=== PATIENT | female | born 1995 | race American Indian/Alaskan Native ===

== ENCOUNTER 2021-01-29 17:18 | Outpatient (CLI) | payer MEDICAID ==
[2021-01-29 19:13] LABS: Hemoglobin 9.9 gm/dl (10.1-14.3); Mean Corpuscular HGB Conc 33 % (30-34); Mean Corpuscular Volume 78 fl (79-97); Platelet Count 244 K/mm3 (140-440); Red Blood Count 3.83 M/mm3 (3.65-5.03); Red Cell Distribution Width 16.4 % (13.2-15.2)
[2021-01-29 19:33] LABS: Alanine Aminotransferase 13 units/L (7-56); Uric Acid 4.7 mg/dL (3.5-7.6)
[2021-01-29 21:40] VITALS: BP 155/93
[2021-01-29 22:06] LABS: Bilirubin,Urine NEG (Negative); Blood,Urine SM (Negative); Color,Urine Yellow (Yellow); Mucus,Urine FEW /HPF; Urobilinogen,Urine < 2.0 mg/dL (<2.0)
== END 2021-01-29 22:49 | disposition home or self-care (01) ==
LOC: TRG 17:18 → APU 17:21 → TRG 22:49
PROVIDERS: ATTEND Obstetrics & Gynecology
DX: O13.3 Gestational [pregnancy-induced] hypertension without significant proteinuria, third trimester (principal); Z3A.38 38 weeks gestation of pregnancy
CPT/HCPCS: 36415; 59025; 81001; 82565; 83615; 84450; 84460; 84550; 85027

== ENCOUNTER 2021-02-01 19:32 | Inpatient (IN) | payer MEDICAID ==
[2021-02-01 20:46] LABS: Hemoglobin 10.2 gm/dl (10.1-14.3); Mean Corpuscular HGB Conc 33 % (30-34); Mean Corpuscular Volume 77 fl (79-97); Platelet Count 248 K/mm3 (140-440); Red Blood Count 4.01 M/mm3 (3.65-5.03); Red Cell Distribution Width 16.2 % (13.2-15.2)
[2021-02-01 20:54] LABS: Bacteria,Urine 1+ /HPF (Negative); Bilirubin,Urine NEG (Negative); Blood,Urine SM (Negative); Color,Urine Yellow (Yellow); Mucus,Urine FEW /HPF; Protein,Urine >500 mg/dL (Negative)
[2021-02-01 21:03] LABS: Alanine Aminotransferase 15 units/L (7-56)
--- NOTE | 2021-02-01 21:17 | Ultrasound Report ---
US OB LIMITED INDICATION / CLINICAL INFORMATION: position. Clinical dates are 38 weeks 6 days. COMPARISON: None available. FINDINGS: There is a single intrauterine in a cephalic presentation. The heart rate is 149 bpm. Signer Name: Juan Bean MD Signed: 02/01/2021 9:12 PM Workstation Name: [id number]
[2021-02-01] MEDS ORDERED: TERBUTALINE 1 MG/1 ML INJ SUB-Q PRN (21:38)
[2021-02-01] MEDS ORDERED: NALOXONE 0.4 MG/1 ML INJ IV PRN (21:38)
[2021-02-01] MEDS ORDERED: MINERAL OIL 30 ML ORAL LIQD PO PRN (21:38)
[2021-02-01] MEDS ORDERED: OXYTOCIN 10 UNIT/1 ML INJ IM PRN (21:38)
[2021-02-01] MEDS ORDERED: miSOPROStol 200 MCG TAB PR PRN (21:38)
[2021-02-01] MEDS ORDERED: BUTORPHANOL 2 MG/1 ML INJ IV PRN (21:38)
[2021-02-01] MEDS ORDERED: LIDOCAINE (2%) 20 MG/1 ML VIAL 20 ML MDV INFILTRATI ONE (21:38)
[2021-02-01] MEDS ORDERED: AMPICILLIN/NS 2 GM/100 ML 2 GM/100 ML BAG IV ONE ×2 (21:38→21:42)
[2021-02-01] MEDS ORDERED: LOPERAMIDE 2 MG CAP PO PRN (21:38)
[2021-02-01] MEDS ORDERED: CARBOPROST TROMETHAMINE 250 MCG/1 ML INJ IM PRN (21:38)
[2021-02-01] MEDS ORDERED: METHYLERGONOVINE MALEATE 0.2 MG/ML VIAL IM PRN (21:38)
[2021-02-01] MEDS ORDERED: ONDANSETRON 4 MG/2 ML INJ IV PRN (21:38)
[2021-02-01] MEDS ORDERED: ePHEDrine SULFATE 50 MG/1 ML INJ IV PRN (21:38)
[2021-02-01] MEDS ORDERED: LACTATED RINGERS 1,000 ML ONE (21:42)
[2021-02-01] MEDS ORDERED: MAGNESIUM SULFATE 4 GM/100 ML BAG IV ONE (21:47)
[2021-02-01] MEDS ORDERED: OXYTOCIN DRIP 30 UNITS/500 ML BAG IV SCH (22:00)
[2021-02-01] MEDS ORDERED: miSOPROStol 25 MCG TAB VG ONE (22:38)
[2021-02-01] MEDS: MAGNESIUM SULFATE 40GM/1000ML 40 GM/1,000 ML BAG IV SCH (23:22)
[2021-02-01] MEDS: OXYTOCIN DRIP 30 UNITS/500 ML BAG IV SCH (23:30)
[2021-02-02] MEDS: AMPICILLIN/NS 1 GM/50 ML 1 GM/50 ML BAG IV SCH ×3 (02:30→13:30)
[2021-02-02] MEDS: hydrALAZINE 20 MG/1 ML INJ IV PRN (02:31)
[2021-02-02] MEDS: fentaNYL 100 MCG/2 ML INJ IV PRN ×2 (03:14→08:30)
[2021-02-02] MEDS: LACTATED RINGERS 1,000 ML IV SCH (12:37)
[2021-02-02] MEDS ORDERED: ePHEDrine SULFATE 50 MG/1 ML INJ IV PRN (12:45)
[2021-02-02] MEDS ORDERED: NALOXONE 2 MG/2 ML INJ IV PRN (12:45)
--- NOTE | 2021-02-02 12:46 | Anesthesia Consultation ---
Anesthesia Consult and Med Hx Date of service: 02/02/21 - Airway Anesthetic Teeth Evaluation: Good ROM Head & Neck: Adequate Mental/Hyoid Distance: Adequate Mallampati Class: Class II Intubation Access Assessment: Probably Good - Pulmonary Exam CTA: Yes - Cardiac Exam Cardiac Exam: RRR - Pre-Operative Health Status ASA Pre-Surgery Classification: ASA3 Proposed Anesthetic Plan: Epidural - Pulmonary Hx Asthma: No COPD: No - Cardiovascular System Hx Hypertension: Yes - Central Nervous System Hx Seizures: No Hx Psychiatric Problems: No - Endocrine Hx Renal Disease: No Hx End Stage Renal Disease: No Hx Hypothyroidism: No Hx Hyperthyroidism: No - Hematic Hx Anemia: No Hx Sickle Cell Disease: No - Other Systems Hx Alcohol Use: No Hx Obesity: Yes
--- NOTE | 2021-02-02 13:06 | Progress Note ---
Labor Epidural - Labor Epidural Start Time: 12:54 Stop Time: 13:01 Performed by:: ADAL SIMPSON Procedure: Patient is requesting epidural for labor pain. H&P, and labs reviewed. Procedure explained, questions answered, consent obtained. Patient in sitting position with blood pressure cuff and pulse ox on and working. Timeout performed immediately before start of procedure. Sterile chlorahexadine 0.5% prep/drape. 3 mL 1% lidocaine skin wheal at L[3]-L[4]. 18-gauge Aprivatead epidural needle advanced to [id number] with saline at [7] cm. 27-gauge spinal needle advanced until clear, free-flowing CSF. Intrathecal dexmedetomidine [5] mcg administered and needle removed. Epidural catheter advanced to [12] cm, negative aspiration for blood and csf, negative test dose 3 ml 1.5% lidocaine with epinephrine. Sterile steri-strips and tegaderm applied, followed by tape reinforcement. Patient tolerated procedure well.
[2021-02-02] MEDS: fentaNYL-BUPIV 2 MCG/ML-0.125% 200 MCG/100 ML BAG EPIDURAL SCH ×2 (13:30→20:55)
[2021-02-02] MEDS: OXYTOCIN DRIP 30 UNITS/500 ML BAG IV SCH (17:20)
[2021-02-02] MEDS: MAGNESIUM SULFATE 40GM/1000ML 40 GM/1,000 ML BAG IV SCH (18:55)
[2021-02-03] MEDS: hydrALAZINE 20 MG/1 ML INJ IV PRN ×2 (00:10→17:53)
[2021-02-03 01:15] LABS: Uric Acid 5.1 mg/dL (3.5-7.6)
[2021-02-03] MEDS: fentaNYL-BUPIV 2 MCG/ML-0.125% 200 MCG/100 ML BAG EPIDURAL SCH (04:30)
--- NOTE | 2021-02-03 07:57 | History and Physical Report ---
History of Present Illness Date of examination: 02/02/21 Date of admission: 02/01/21 22:56 Chief complaint: I am here to be induced History of present illness: Patient is a 25-year-old 3 para 0-0-2-0 who presents today at 38-3/7 weeks with elevated blood pressures and proteinuria. Patient was seen a few days ago in the office and had an elevated blood pressure she also had some serial elevated pressures at the hospital, however she had normal labs. Patient returned today with severe range blood pressures and severe proteinuria. Decision was made to induce. Her course has been uncomplicated except for diagnosis of chlamydia early in which was treated with a negative test of cure. She is GBS positive. She also had a failed 1 hour GTT, however her 3-hour test was within normal limits. She denies headaches or blurry vision. Past History Past Medical History: no pertinent history Past Surgical History: no surgical history [employer] History: chlamydia Family/Genetic History: none Social history: single - Obstetrical History Expected Date of Delivery: 02/12/21 Actual Gestation: 38 Week(s) 5 Day(s) : 3 Para: 0 Medications and Allergies Allergies Allergy/AdvReac Type Severity Reaction Status Date / Time No Known Allergies Allergy Verified 01/29/21 17:54 Home Medications Medication Instructions Recorded Confirmed Last Taken Type No Known Home Medications [No 02/01/21 02/01/21 Unknown History Reported Home Medications] Active Meds: Active Medications Butorphanol Tartrate (Butorphanol 2 Mg/1 Ml Inj) 2 mg IV Q2H PRN PRN Reason: Pain , Severe (7-10) Carboprost Tromethamine (Carboprost Tromethamine 250 Mcg/1 Ml Inj) 250 mcg IM ONCE PRN PRN Reason: Uterine Bleeding Ephedrine Sulfate (Ephedrine Sulfate 50 Mg/1 Ml Inj) 10 mg IV Q2M PRN PRN Reason: Hypotension Fentanyl (Fentanyl 100 Mcg/2 Ml Inj) 100 mcg IV Q2H PRN PRN Reason: Pain,Severe (7-10) LABOR PAIN Last Admin: 02/02/21 08:30 Dose: 100 mcg Documented by: Hydralazine HCl (Hydralazine 20 Mg/1 Ml Inj) 5 mg IV Q30MIN PRN PRN Reason: Hypertension Last Admin: 02/03/21 00:10 Dose: 5 mg Documented by: Oxytocin/Sodium Chloride (Pitocin/Ns 30 Unit/500ml) 30 units in 500 mls @ 2 mls/hr IV TITR DWAYNE; Protocol Last Admin: 02/02/21 17:20 Dose: 12 mls/hr, 12 mls/hr Documented by: Lactated Ringer's (Lactated Ringers) 1,000 mls @ 125 mls/hr IV DIRECT DWAYNE Last Admin: 02/02/21 12:37 Dose: 999 mls/hr Documented by: Oxytocin/Sodium Chloride (Pitocin/Ns 30 Unit/500ml) 30 units in 500 mls @ 40 mls/hr IV TITR DWAYNE; Protocol Ampicillin Sodium (Ampicillin/Ns 1 Gm/50 Ml) 1 gm in 50 mls @ 100 mls/hr IV Q4H DWAYNE; Protocol Last Admin: 02/02/21 13:30 Dose: 100 mls/hr Documented by: Magnesium Sulfate (Magnesium Sulfate 40gm/1000ml) 40 gm in 1,000 mls @ 50 mls/hr IV DIRECT DWAYNE Last Admin: 02/02/21 18:55 Dose: 2 gm/hr, 50 mls/hr Documented by: Fentanyl/Bupivacaine/Sodium Chlor (Fentanyl-Bupiv 2 Mcg/Ml-0.125%) 200 mcg in 100 mls @ 12 mls/hr EPIDURAL TITR DWAYNE; Protocol Last Admin: 02/03/21 04:30 Dose: 12 mls/hr Documented by: Loperamide HCl (Loperamide 2 Mg Cap) 2 mg PO ONCE PRN PRN Reason: give with Hemabate Methylergonovine Maleate (Methylergonovine Maleate 0.2 Mg/Ml Vial) 0.2 mg IM ONCE PRN PRN Reason: Uterine Bleeding Mineral Oil (Mineral Oil 30 Ml Oral Liqd) 30 ml PO QHS PRN PRN Reason: Constipation Misoprostol (Misoprostol 200 Mcg Tab) 800 mcg ID ONCE PRN PRN Reason: Uterine Bleeding Naloxone HCl (Naloxone 2 Mg/2 Ml Inj) 0.2 mg IV Q5M PRN PRN Reason: Respiratory sedation Ondansetron HCl (Ondansetron 4 Mg/2 Ml Inj) 4 mg IV Q8H PRN PRN Reason: Nausea And Vomiting Oxytocin (Oxytocin 10 Unit/1 Ml Inj) 10 unit IM ONCE PRN PRN Reason: Uterine Bleeding Terbutaline Sulfate (Terbutaline 1 Mg/1 Ml Inj) 0.25 mg SUB-Q ONCE PRN PRN Reason: Hyperstimulation/Hypertonicity Review of Systems All systems: negative Cardiovascular: edema - Vital Signs Vital signs: Vital Signs Pulse BP 93 H 141/85 02/01/21 20:10 02/01/21 20:10 Temp Pulse Resp BP Pulse Ox 98.1 F 104 H 18 143/73 98 02/03/21 07:20 02/03/21 07:51 02/03/21 07:20 02/03/21 07:48 02/03/21 07:51 - Physical Exam Breasts: Cardiovascular: Regular rate, Normal S1, Normal S2 Lungs: Positive: Clear to auscultation, Normal air movement Abdomen: Positive: normal appearance, soft, normal bowel sounds. Negative: distention, tenderness Genitourinary (Female): Positive: normal external genitalia, normal perenium Vulva: both: normal Vagina: Positive: normal moisture. Negative: discharge Cervix: Negative: lesion, discharge Uterus: Positive: normal size, normal contour Adnexa: both: normal Anus/Rectum: Positive: normal perianal skin, heme negative. Negative: rectal mass, hemorrhoids Extremities: Deep Tendon Reflex Grade: Normal +2 - Obstetrical FHR: auscultation normal Cervical Dilatation: 1 Cervical Effacement Percentage: 50 station: -3 Uterine Contraction Pattern: Irregular Uterine Tone Measurement Phase: Contraction Uterine Contraction Intensity: Moderate Results Result Diagrams: 02/01/21 20:20 02/01/21 20:20 Abnormal lab results 02/01/21 02/02/21 02/02/21 Range/Units 20:20 08:04 14:50 Magnesium 4.40 H 5.50 H (1.7-2.3) mg/dL Lactate Dehydrogenase 238 H (91-180) units/L 02/02/21 02/03/21 Range/Units 20:07 00:22 Magnesium 6.20 H 6.50 H (1.7-2.3) mg/dL Lactate Dehydrogenase (91-180) units/L All other labs normal. Assessment and Plan IUP at 38 and 4 with signs and symptoms of severe preeclampsia. Will admit for induction of labor. We will begin magnesium procedure for seizure prophylaxis. We will begin ampicillin for GBS status. Patient to be started on Pitocin. Anticipate .
[2021-02-03] MEDS ORDERED: FAMOTIDINE 20 MG/2 ML INJ IV NR (09:08)
[2021-02-03] MEDS ORDERED: BICITRA ORAL LIQD 30ML PO NR (09:08)
[2021-02-03] MEDS ORDERED: METOCLOPRAMIDE 10 MG/2 ML INJ IV NR (09:08)
--- NOTE | 2021-02-03 09:08 | Progress Note ---
Assessment and Plan Day 2 from induction. Patient was AROM on yesterday at 8 PM. At that time she was 5 cm. Despite adequate contractions she has not made any further progress nor descent of head. After conversation with patient decision made to proceed with section. We will sign consents and proceed with same. Subjective - Subjective Date of service: 02/03/21 Interval history: Patient is a 25-year-old 3 para 0-0-2-0 who presents today at 38-3/7 weeks with elevated blood pressures and proteinuria. Patient was seen a few days ago in the office and had an elevated blood pressure she also had some serial elevated pressures at the hospital, however she had normal labs. Patient returned today with severe range blood pressures and severe proteinuria. Decision was made to induce. Her course has been uncomplicated except for diagnosis of chlamydia early in which was treated with a negative test of cure. She is GBS positive. She also had a failed 1 hour GTT, however her 3-hour test was within normal limits. She denies headaches or blurry vision. Patient reports: new complaints, movement normal, contractions Objective - Vital Signs Vital Signs: Vital Signs - 12hr 02/02/21 02/02/21 02/02/21 21:11 21:16 21:21 Temperature Pulse Rate 82 82 86 Respiratory Rate Blood Pressure 122/66 O2 Sat by Pulse 96 96 96 Oximetry 02/02/21 02/02/21 02/02/21 21:26 21:31 21:36 Temperature Pulse Rate 85 82 81 Respiratory Rate Blood Pressure O2 Sat by Pulse 95 96 96 Oximetry 02/02/21 02/02/21 02/02/21 21:41 21:45 21:46 Temperature Pulse Rate 81 83 82 Respiratory Rate Blood Pressure 132/67 O2 Sat by Pulse 96 96 Oximetry 02/02/21 02/02/21 02/02/21 21:51 21:56 22:01 Temperature Pulse Rate 81 81 78 Respiratory Rate Blood Pressure O2 Sat by Pulse 96 96 96 Oximetry 02/02/21 02/02/21 02/02/21 22:06 22:09 22:11 Temperature Pulse Rate 98 H 106 H 96 H Respiratory Rate Blood Pressure O2 Sat by Pulse 99 90 98 Oximetry 02/02/21 02/02/21 02/02/21 22:15 22:16 22:21 Temperature Pulse Rate 91 H 92 H 89 Respiratory Rate Blood Pressure 172/89 O2 Sat by Pulse 98 97 Oximetry 02/02/21 02/02/21 02/02/21 22:26 22:27 22:31 Temperature Pulse Rate 89 91 H 91 H Respiratory Rate Blood Pressure 152/92 O2 Sat by Pulse 98 98 Oximetry 02/02/21 02/02/21 02/02/21 22:36 22:41 22:45 Temperature Pulse Rate 92 H 85 118 H Respiratory Rate Blood Pressure 149/102 O2 Sat by Pulse 97 98 Oximetry 02/02/21 02/02/21 02/02/21 22:46 22:51 22:56 Temperature Pulse Rate 133 H 100 H 114 H Respiratory Rate Blood Pressure O2 Sat by Pulse 99 99 97 Oximetry 02/02/21 02/02/21 02/02/21 23:01 23:06 23:11 Temperature Pulse Rate 90 89 86 Respiratory Rate Blood Pressure O2 Sat by Pulse 97 97 96 Oximetry 02/02/21 02/02/21 02/02/21 23:16 23:17 23:21 Temperature Pulse Rate 101 H 90 91 H Respiratory Rate Blood Pressure 168/95 O2 Sat by Pulse 96 97 Oximetry 02/02/21 02/02/21 02/02/21 23:26 23:31 23:36 Temperature Pulse Rate 92 H 95 H 92 H Respiratory Rate Blood Pressure O2 Sat by Pulse 96 97 96 Oximetry 02/02/21 02/02/21 02/02/21 23:41 23:46 23:51 Temperature Pulse Rate 91 H 91 H 93 H Respiratory Rate Blood Pressure 164/100 O2 Sat by Pulse 97 97 97 Oximetry 02/02/21 02/03/21 02/03/21 23:56 00:01 00:05 Temperature Pulse Rate 95 H 96 H 91 H Respiratory Rate Blood Pressure 172/108 O2 Sat by Pulse 96 96 Oximetry 02/03/21 02/03/21 02/03/21 00:06 00:10 00:11 Temperature Pulse Rate 111 H 101 H 101 H Respiratory Rate Blood Pressure 172/108 O2 Sat by Pulse 98 98 Oximetry 02/03/21 02/03/21 02/03/21 00:16 00:21 00:26 Temperature Pulse Rate 101 H 104 H 104 H Respiratory Rate Blood Pressure 174/108 O2 Sat by Pulse 98 98 98 Oximetry 02/03/21 02/03/21 02/03/21 00:31 00:34 00:36 Temperature Pulse Rate 105 H 95 H 108 H Respiratory Rate Blood Pressure 171/102 O2 Sat by Pulse 99 99 Oximetry 02/03/21 02/03/21 02/03/21 00:39 00:41 00:46 Temperature Pulse Rate 95 H 108 H 92 H Respiratory Rate Blood Pressure 158/88 O2 Sat by Pulse 99 98 Oximetry 02/03/21 02/03/21 02/03/21 00:51 00:56 01:01 Temperature Pulse Rate 89 98 H 86 Respiratory Rate Blood Pressure O2 Sat by Pulse 97 98 97 Oximetry 02/03/21 02/03/21 02/03/21 01:06 01:10 01:11 Temperature Pulse Rate 94 H 94 H 90 Respiratory Rate Blood Pressure 119/76 O2 Sat by Pulse 98 98 Oximetry 02/03/21 02/03/21 02/03/21 01:16 01:21 01:26 Temperature Pulse Rate 95 H 91 H 100 H Respiratory Rate Blood Pressure O2 Sat by Pulse 97 97 98 Oximetry 02/03/21 02/03/21 02/03/21 01:31 01:36 01:39 Temperature Pulse Rate 88 107 H 118 H Respiratory Rate Blood Pressure O2 Sat by Pulse 98 99 88 Oximetry 02/03/21 02/03/21 02/03/21 01:40 01:41 01:46 Temperature Pulse Rate 102 H 92 H 93 H Respiratory Rate Blood Pressure 135/78 O2 Sat by Pulse 97 96 Oximetry 02/03/21 02/03/21 02/03/21 01:51 01:56 02:01 Temperature Pulse Rate 103 H 91 H 94 H Respiratory Rate Blood Pressure O2 Sat by Pulse 97 97 98 Oximetry 02/03/21 02/03/21 02/03/21 02:06 02:10 02:11 Temperature Pulse Rate 105 H 86 89 Respiratory Rate Blood Pressure 145/70 O2 Sat by Pulse 97 97 Oximetry 02/03/21 02/03/21 02/03/21 02:16 02:21 02:26 Temperature Pulse Rate 100 H 84 90 Respiratory Rate Blood Pressure O2 Sat by Pulse 98 97 98 Oximetry 02/03/21 02/03/21 02/03/21 02:31 02:36 02:40 Temperature Pulse Rate 107 H 95 H 86 Respiratory Rate Blood Pressure 146/78 O2 Sat by Pulse 97 96 Oximetry 02/03/21 02/03/2102/03/21 02:41 02:46 02:51 Temperature Pulse Rate 92 H 87 89 Respiratory Rate Blood Pressure O2 Sat by Pulse 98 97 97 Oximetry 02/03/21 02/03/21 02/03/21 02:56 03:01 03:06 Temperature Pulse Rate 95 H 96 H 97 H Respiratory Rate Blood Pressure O2 Sat by Pulse 99 97 99 Oximetry 02/03/21 02/03/21 02/03/21 03:10 03:11 03:16 Temperature Pulse Rate 95 H 95 H 95 H Respiratory Rate Blood Pressure 180/85 O2 Sat by Pulse 98 98 Oximetry 02/03/21 02/03/21 02/03/21 03:21 03:26 03:30 Temperature Pulse Rate 97 H 112 H 112 H Respiratory Rate Blood Pressure 177/79 O2 Sat by Pulse 98 98 Oximetry 02/03/21 02/03/21 02/03/21 03:31 03:36 03:40 Temperature Pulse Rate 108 H 98 H 99 H Respiratory Rate Blood Pressure 159/75 O2 Sat by Pulse 98 98 Oximetry 02/03/21 02/03/21 02/03/21 03:41 03:46 03:51 Temperature Pulse Rate 100 H 96 H 83 Respiratory Rate Blood Pressure O2 Sat by Pulse 98 98 98 Oximetry 02/03/21 02/03/21 02/03/21 03:56 04:01 04:03 Temperature Pulse Rate 87 91 H 105 H Respiratory Rate Blood Pressure 139/61 O2 Sat by Pulse 97 97 Oximetry 02/03/21 02/03/21 02/03/21 04:06 04:10 04:11 Temperature Pulse Rate 102 H 103 H 94 H Respiratory Rate Blood Pressure 127/58 O2 Sat by Pulse 100 100 Oximetry 02/03/21 02/03/21 02/03/21 04:16 04:21 04:25 Temperature Pulse Rate 127 H 110 H 109 H Respiratory Rate Blood Pressure O2 Sat by Pulse 99 97 93 Oximetry 02/03/21 02/03/21 02/03/21 04:26 04:31 04:36 Temperature Pulse Rate 92 H 90 107 H Respiratory Rate Blood Pressure O2 Sat by Pulse 96 95 98 Oximetry 02/03/21 02/03/21 02/03/21 04:41 04:46 04:51 Temperature Pulse Rate 101 H 100 H 100 H Respiratory Rate Blood Pressure O2 Sat by Pulse 96 96 96 Oximetry 02/03/21 02/03/21 02/03/21 04:56 05:01 05:06 Temperature Pulse Rate 101 H 99 H 95 H Respiratory Rate Blood Pressure O2 Sat by Pulse 96 95 96 Oximetry 02/03/21 02/03/21 02/03/21 05:10 05:11 05:16 Temperature Pulse Rate 99 H 98 H 96 H Respiratory Rate Blood Pressure 109/54 O2 Sat by Pulse 96 96 Oximetry 02/03/21 02/03/21 02/03/21 05:21 05:26 05:31 Temperature Pulse Rate 99 H 97 H 98 H Respiratory Rate Blood Pressure O2 Sat by Pulse 96 95 95 Oximetry 02/03/21 02/03/21 02/03/21 05:36 05:41 05:46 Temperature Pulse Rate 98 H 99 H 97 H Respiratory Rate Blood Pressure O2 Sat by Pulse 96 96 96 Oximetry 02/03/21 02/03/21 02/03/21 05:51 05:56 06:01 Temperature Pulse Rate 98 H 99 H 99 H Respiratory Rate Blood Pressure O2 Sat by Pulse 97 97 97 Oximetry 02/03/21 02/03/21 02/03/21 06:06 06:10 06:11 Temperature Pulse Rate 98 H 102 H 102 H Respiratory Rate Blood Pressure 108/54 O2 Sat by Pulse 97 97 Oximetry 02/03/21 02/03/21 02/03/21 06:16 06:21 06:26 Temperature Pulse Rate 102 H 100 H 102 H Respiratory Rate Blood Pressure O2 Sat by Pulse 97 97 98 Oximetry 02/03/21 02/03/21 02/03/21 06:31 06:36 06:40 Temperature Pulse Rate 99 H 101 H 106 H Respiratory Rate Blood Pressure 130/63 O2 Sat by Pulse 98 98 Oximetry 02/03/21 02/03/21 02/03/21 06:41 06:46 06:51 Temperature Pulse Rate 111 H 102 H 100 H Respiratory Rate Blood Pressure O2 Sat by Pulse 98 99 98 Oximetry 02/03/21 02/03/21 02/03/21 06:56 07:01 07:06 Temperature Pulse Rate 101 H 100 H 102 H Respiratory Rate Blood Pressure O2 Sat by Pulse 98 98 97 Oximetry 02/03/21 02/03/21 02/03/21 07:10 07:11 07:16 Temperature Pulse Rate 103 H 102 H 105 H Respiratory Rate Blood Pressure 131/78 O2 Sat by Pulse 97 97 Oximetry 02/03/21 02/03/21 02/03/21 07:19 07:20 07:21 Temperature 98.1 F Pulse Rate 109 H 108 H Respiratory 18 Rate Blood Pressure 130/73 O2 Sat by Pulse 98 Oximetry 02/03/21 02/03/21 02/03/21 07:26 07:31 07:36 Temperature Pulse Rate 104 H 106 H 112 H Respiratory Rate Blood Pressure O2 Sat by Pulse 98 97 98 Oximetry 02/03/21 02/03/21 02/03/21 07:40 07:41 07:46 Temperature Pulse Rate 107 H 102 H 109 H Respiratory Rate Blood Pressure 145/80 O2 Sat by Pulse 97 99 Oximetry 02/03/21 02/03/21 02/03/21 07:48 07:51 07:56 Temperature Pulse Rate 101 H 104 H 102 H Respiratory Rate Blood Pressure 143/73 O2 Sat by Pulse 98 97 Oximetry 02/03/21 02/03/21 02/03/21 08:01 08:06 08:10 Temperature Pulse Rate 102 H 121 H 107 H Respiratory Rate Blood Pressure 133/72 O2 Sat by Pulse 97 97 Oximetry 02/03/21 02/03/21 02/03/21 08:11 08:16 08:21 Temperature Pulse Rate 104 H 101 H 106 H Respiratory Rate Blood Pressure O2 Sat by Pulse 96 97 95 Oximetry 02/03/21 02/03/21 02/03/21 08:26 08:31 08:36 Temperature Pulse Rate 111 H 106 H 106 H Respiratory Rate Blood Pressure O2 Sat by Pulse 97 98 97 Oximetry 02/03/21 02/03/21 02/03/21 08:40 08:41 08:46 Temperature Pulse Rate 102 H 103 H 111 H Respiratory Rate Blood Pressure 140/70 O2 Sat by Pulse 96 97 Oximetry 02/03/21 02/03/21 02/03/21 08:51 08:56 09:01 Temperature Pulse Rate 102 H 103 H 115 H Respiratory Rate Blood Pressure O2 Sat by Pulse 97 97 98 Oximetry 02/03/21 09:06 Temperature Pulse Rate 109 H Respiratory Rate Blood Pressure O2 Sat by Pulse 97 Oximetry - Exam Breasts: deferred Cardiovascular: Regular rate, Normal S1, Normal S2 Lungs: Clear to auscultation, Normal air movement Abdomen: Present: normal appearance, soft, normal bowel sounds Uterus: Present: normal FHR: auscultation normal Cervical Dilatation: 5 - Labs Labs: Abnormal Labs 02/01/21 02/01/21 02/01/21 20:20 20:20 20:20 MCV 77 L MCH 25 L RDW 16.2 H Magnesium Lactate Dehydrogenase 238 H Urine WBC (Auto) 22.0 H U Epithel Cells (Auto) 17.0 H 02/02/21 02/02/21 02/02/21 08:04 14:50 20:07 MCV MCH RDW Magnesium 4.40 H 5.50 H 6.20 H Lactate Dehydrogenase Urine WBC (Auto) U Epithel Cells (Auto) 02/03/21 02/03/21 00:22 07:35 MCV MCH RDW Magnesium 6.50 H 8.30 H Lactate Dehydrogenase Urine WBC (Auto) U Epithel Cells (Auto) Laboratory Results - last 24 hr 02/01/21 02/02/21 02/02/21 20:20 14:50 20:07 Uric Acid 5.1 Magnesium 5.50 H 6.20 H Lactate Dehydrogenase 238 H Coronavirus (PCR) 02/02/21 02/03/21 02/03/21 Unknown 00:22 07:35 Uric Acid Magnesium 6.50 H 8.30 H Lactate Dehydrogenase Coronavirus (PCR) Negative
[2021-02-03] MEDS ORDERED: LACTATED RINGERS 1,000 ML IV SCH (09:15)
[2021-02-03] MEDS ORDERED: ceFAZolin/Water 2 GM/20 ML 2 GM/20 ML SYRINGE IV NR (10:00)
[2021-02-03] MEDS ORDERED: LIDOCAINE MPF (2%) 20 MG/1 ML VIAL 5 ML ONE (10:43)
[2021-02-03] MEDS ORDERED: dexAMETHasone 20 MG/5 ML VIAL ONE (10:43)
[2021-02-03] MEDS ORDERED: BUPIVACAINE/PF (0.5%) 5 MG/1 ML 30 ML VIAL INFILTRATI ONE (10:43)
[2021-02-03] MEDS ORDERED: KETOROLAC 30 MG/1 ML INJ ONE (11:36)
[2021-02-03] MEDS ORDERED: ONDANSETRON 4 MG/2 ML INJ ONE (11:36)
[2021-02-03] MEDS ORDERED: SODIUM CHLORIDE 0.9% IRR 1,500 ML BOTTLE IR ONE (11:42)
[2021-02-03] MEDS ORDERED: WATER FOR IRRIG STERILE 1,500 ML BOTTLE IR ONE (11:42)
--- NOTE | 2021-02-03 12:19 | Progress Note ---
Spinal Anesthesia Block - Spinal Anesthesia Block Performed by:: ADAL SIMPSON Procedure: Epidural bolused 10 ml 2% lidocaine, no block after 10 minutes, epidural pulled tip intact. Sitting, sterile chlorahexadine 0.5% prep/drape, 1% lidocaine skin local, 25G spinal needle + introducer x1 attempt, 22G x1 at L3-4, + CSF, - Heme, [1.9 ml 0.5% bupivacaine + 10 mcg dexmedetomidine] injected, drape removed, patient positioned supine with left uterine displacement, and spinal level verified to be adequate prior to surgery.
[2021-02-03] MEDS ORDERED: SODIUM CHLORIDE 0.9% 1000 ML 1,000 ML ONE (12:59)
[2021-02-03] MEDS ORDERED: SODIUM CHLORIDE 0.9% 100 ML ONE (12:59)
[2021-02-03] MEDS ORDERED: PHENYLEPHRINE 10 MG/1 ML INJ SDV ONE (12:59)
[2021-02-03] MEDS ORDERED: LANOLIN/ZINC/DIMETHICONE (LANSINOH) 7 GM TP PRN (13:01)
[2021-02-03] MEDS ORDERED: NALOXONE 0.4 MG/1 ML INJ IV PRN (13:01)
[2021-02-03] MEDS ORDERED: WITCH HAZEL/ GLYCERIN PAD TP PRN (13:01)
--- NOTE | 2021-02-03 13:06 | Operative Report ---
Operative Report Operative Report: Preoperative diagnosis: Intrauterine at 38 and 5 weeks 2. Severe preeclampsia 3. Failed induction with arrest of descent Postoperative diagnosis: Same with persistent OP Procedure: Primary low transverse section Surgeon: Dr. Mandie Nguyen EBL: 800 cc Urine output: 200 mL IV fluids: 1600 cc mL Findings: Viable male in the occiput posterior position weight 7 lbs. 9 oz. 3420 g Apgars 8 and 9. Otherwise normal pelvic anatomy Specimens: None Complications: None Procedure: The patient was admitted to the OR with IV running and in place. She was properly identified as herself. An epidural had been placed in the room ho wever it was nonfunctioning. Therefore a second procedure was performed that placed spinal anesthesia while the patient was in the OR she was placed in the dorsal supine position with a leftward tilt. A Somers catheter was inserted previously. She was then prepped and draped in the normal sterile fashion. An Allis test was used to confirm adequate anesthesia. Once confirmed, the incision was made with the scalpel and carried to the underlying fascia using the scalpel and the Bovie. The fascia was incised in the midline and incision was extended bilaterally using the curved Simpson scissors. The fascia was then dissected from the underlying rectus muscles in a series of sharp and blunt dissection using the Simpson scissors. Muscles were in the in the midline sharply using Metzenbaum scissors and the peritoneum was entered into bluntly using the surgeon's fingers. A bladder blade was then placed into the incision to protect the bladder. Following this the bladder flap was created. Hysterotomy incision was then made in the scalpel. Upon uterine entry, the amniotic sac was ruptured for clear fluid. The was then delivered without difficulty. His mouth and nose were suctioned on the field. The cord was clamped and cut and he was handed to the waiting NICU personnel. The uterus was then exteriorized and cleared of all clots and debris. The hysterotomy incision was then closed in a running locked fashion using 0 Vicryl. The abdomen was then copiously irrigated with warm normal saline. Following this the uterus was replaced into the abdominal cavity. At this point the muscles were reapproximated in the midline using individual sutures of 0 Vicryl. Following this the fascia was closed in a running fashion using 0 Vicryl. Tissue was then copiously irrigated. Retention sutures were placed in the subcutaneous fat tissue Skin was closed in a running fashion using 3-0 Monocryl. The sponge lap needle and instrument counts were correct 2. The pat ient tolerated the procedure well. She was taken to recovery in stable condition.
--- NOTE | 2021-02-03 13:08 | Procedure Note ---
OB Delivery Note - Delivery Date of Delivery: 02/03/21 Surgeon: MARIA ALEJANDRA DUVAL Estimated blood loss: other (800 cc) - Section Preop diagnosis: arrest of descent, arrest of dilation Postop diagnosis: same section procedure: primary low transverse Disposition: PACU Complications: none Narrative: See op report - Infant A at 1 minute: 8 at 5 minutes: 9 Infant Gender: Male (7 pounds 9 ounces)
[2021-02-03] MEDS ORDERED: MAGNESIUM SULFATE 40GM/1000ML 40 GM/1,000 ML BAG IV SCH (14:00)
[2021-02-03] MEDS ORDERED: MORPHINE 4 MG/1 ML INJ IV PRN (14:00)
[2021-02-03] MEDS ORDERED: oxyCODONE /ACETAMINOPHEN 5-325MG TAB PO PRN (14:00)
[2021-02-03] MEDS ORDERED: SIMETHICONE 80 MG CHEW TAB PO PRN (14:00)
[2021-02-03] MEDS ORDERED: D5W/LACTATED RINGERS 1,000 ML IV SCH (14:00)
--- NOTE | 2021-02-03 20:00 | Post Anesthesia Evaluation ---
- Post Anesthesia Evaluation Patient Participated: Yes Airway Patent: Yes Stable Respiratory Function: Yes Nausea/Vomiting: No Temp > 96.8F: Yes Pain Manageable: Yes Adequeate Hydration: Yes Anesthesia Complications: No Block Receding Appropriately: Yes
[2021-02-03] MEDS: LACTATED RINGERS 1,000 ML IV SCH (20:32)
[2021-02-03] MEDS: IBUPROFEN 800 MG TAB PO PRN (20:35)
[2021-02-03] MEDS ORDERED: MAGNESIUM HYDROXIDE (MOM) ORAL LIQD UDC PO PRN (22:00)
[2021-02-04 01:06] LABS: Hemoglobin 9.1 gm/dl (10.1-14.3)
--- NOTE | 2021-02-04 11:08 | Progress Note ---
Assessment and Plan Postop day 1 status post primary for arrest of descent doing well. Patient the blood pressures have been in normal range. We will continue to monitor before deciding on starting medication. Continue routine care. Subjective - Subjective Date of service: 02/04/21 Interval history: Postop day 1 status post primary low transverse section for arrest of descent. Patient is doing well. She denies headaches or blurry vision. Her pain is well controlled. She denies nausea or vomiting and is tolerating a regular diet. Patient remains on magnesium therapy secondary to preeclampsia and until diuresis begins. Patient reports: appetite normal, voiding normally, pain well controlled, ambulating normally : in NICU Objective - Vital Signs Latest vital signs: Vital Signs Temp Pulse Resp BP Pulse Ox 02/04/21 11:04 109 H 94 02/04/21 10:59 102 H 94 02/04/21 10:58 107 H 94 02/04/21 10:54 102 H 95 02/04/21 10:52 104 H 94 02/04/21 10:49 100 H 94 02/04/21 10:47 103 H 94 02/04/21 10:44 101 H 95 02/04/21 10:42 100 H 136/84 94 02/04/21 10:39 100 H 96 02/04/21 10:35 100 H 94 02/04/21 10:34 97 H 95 02/04/21 10:29 103 H 95 02/04/21 10:27 99 H 94 02/04/21 10:24 102 H 96 02/04/21 10:21 105 H 94 02/04/21 10:19 104 H 94 02/04/21 10:15 99 H 94 02/04/21 10:14 103 H 94 02/04/21 10:10 107 H 93 02/04/21 10:09 102 H 95 02/04/21 10:04 104 H 96 02/04/21 10:02 103 H 94 02/04/21 09:59 100 H 95 02/04/21 09:57 105 H 94 02/04/21 09:54 104 H 94 02/04/21 09:49 100 H 94 02/04/21 09:44 102 H 95 02/04/21 09:43 97 H 94 02/04/21 09:40 100 H 134/69 07/14/21 09:39 107 H 95 02/04/21 09:38 109 H 94 02/04/21 09:34 94 H 95 02/04/21 09:32 91 H 91 02/04/21 09:29 89 95 02/04/21 09:26 96 H 92 02/04/21 09:24 89 94 02/04/21 09:21 89 94 02/04/21 09:19 89 95 02/04/21 09:16 91 H 90 02/04/21 09:14 95 H 88 02/04/21 09:11 97 H 93 02/04/21 09:10 90 142/83 02/04/21 09:09 89 96 02/04/21 09:05 85 93 02/04/21 09:04 92 H 93 02/04/21 09:00 91 H 94 02/04/21 08:59 97 H 97 02/04/21 08:54 86 95 02/04/21 08:49 92 H 94 02/04/21 08:44 94 H 95 02/04/21 08:40 96 H 158/86 02/04/21 08:39 103 H 93 02/04/21 08:38 96 H 94 02/04/21 08:34 98 H 96 02/04/21 08:33 109 H 94 02/04/21 08:29 105 H 95 02/04/21 08:24 99 H 95 02/04/21 08:19 97 H 96 02/04/21 08:18 103 H 94 02/04/21 08:14 106 H 97 02/04/21 08:10 96 H 147/93 02/04/21 08:09 98 H 95 02/04/21 08:08 105 H 93 02/04/21 08:04 107 H 93 02/04/21 08:01 109 H 94 02/04/21 07:59 105 H 94 02/04/21 07:55 108 H 93 02/04/21 07:54 101 H 95 02/04/21 07:52 98.1 F 16 02/04/21 07:50 104 H 94 02/04/21 07:49 103 H 95 02/04/21 07:44 107 H 94 02/04/21 07:42 101 H 94 02/04/21 07:40 100 H 168/84 02/04/21 07:39 102 H 93 02/04/21 07:34 104 H 93 02/04/21 07:33 100 H 94 02/04/21 07:29 100 H 95 02/04/21 07:25 103 H 94 02/04/21 07:24 103 H 94 02/04/21 07:19 95 H 94 02/04/21 07:14 91 H 96 02/04/21 07:10 86 137/71 02/04/21 07:09 94 H 96 02/04/21 07:07 90 94 02/04/21 07:04 94 H 96 02/04/21 06:59 97 H 94 02/04/21 06:54 99 H 95 02/04/21 06:53 99 H 94 02/04/21 06:49 99 H 95 02/04/21 06:47 98.1 F 02/04/21 06:44 97 H 92 02/04/21 06:43 87 94 02/04/21 06:40 88 134/60 02/04/21 06:39 90 95 02/04/21 06:38 91 H 94 02/04/21 06:34 91 H 95 02/04/21 06:32 92 H 93 02/04/21 06:29 88 95 02/04/21 06:25 94 H 94 02/04/21 06:24 93 H 95 02/04/21 06:20 92 H 94 02/04/21 06:19 93 H 94 02/04/21 06:14 96 H 95 02/04/21 06:10 92 H 140/75 02/04/21 06:09 97 H 96 02/04/21 06:04 94 H 95 02/04/21 05:59 98 H 95 02/04/21 05:54 93 H 95 02/04/21 05:53 93 H 94 02/04/21 05:49 95 H 96 02/04/21 05:44 97 H 96 02/04/21 05:40 96 H 141/75 02/04/21 05:39 98 H 94 02/04/21 05:38 95 H 94 02/04/21 05:34 98 H 95 02/04/21 05:32 92 H 94 02/04/21 05:29 94 H 95 02/04/21 05:26 96 H 94 02/04/21 05:24 95 H 95 02/04/21 05:21 98 H 94 02/04/21 05:19 92 H 96 02/04/21 05:14 90 96 02/04/21 05:10 87 140/77 02/04/21 05:09 91 H 95 02/04/21 05:07 96 H 94 02/04/21 05:04 89 95 02/04/21 05:00 88 94 02/04/21 04:59 87 95 02/04/21 04:55 88 94 02/04/21 04:54 87 95 02/04/21 04:49 88 94 02/04/21 04:44 85 95 02/04/21 04:41 88 94 02/04/21 04:40 85 141/81 02/04/21 04:39 87 96 02/04/21 04:34 95 H 96 02/04/21 04:29 86 96 02/04/21 04:24 106 H 95 02/04/21 04:19 85 95 02/04/21 04:16 85 94 02/04/21 04:14 94 H 95 02/04/21 04:10 81 128/70 94 02/04/21 04:09 84 94 02/04/21 04:04 81 91 02/04/21 03:59 83 95 02/04/21 03:54 82 94 02/04/21 03:49 81 94 02/04/21 03:44 89 92 02/04/21 03:40 83 133/69 02/04/21 03:39 86 94 02/04/21 03:35 85 94 02/04/21 03:34 86 93 02/04/21 03:30 85 94 02/04/21 03:29 85 92 02/04/21 03:24 82 94 02/04/21 03:19 81 94 02/04/21 03:14 84 94 02/04/21 03:10 88 137/70 02/04/21 03:09 87 93 02/04/21 03:08 85 93 02/04/21 03:04 85 94 02/04/21 02:59 88 93 02/04/21 02:54 86 95 02/04/21 02:51 88 94 02/04/21 02:49 87 96 02/04/21 02:46 90 89 02/04/21 02:44 86 93 02/04/21 02:41 102 H 94 02/04/21 02:40 96 H 134/74 02/04/21 02:39 106 H 97 02/04/21 02:34 98 H 89 02/04/21 02:29 84 95 02/04/21 02:27 84 94 02/04/21 02:24 79 94 02/04/21 02:20 89 93 02/04/21 02:19 85 95 02/04/21 02:14 86 95 02/04/21 02:12 83 94 02/04/21 02:10 90 131/75 02/04/21 02:09 87 93 02/04/21 02:07 86 94 02/04/21 02:04 89 95 02/04/21 02:00 87 94 02/04/21 01:59 84 95 02/04/21 01:54 89 94 02/04/21 01:51 88 94 02/04/21 01:49 88 94 02/04/21 01:44 87 94 02/04/21 01:43 89 94 02/04/21 01:40 85 125/67 02/04/21 01:39 86 95 02/04/21 01:38 88 91 02/04/21 01:34 88 96 02/04/21 01:33 88 93 02/04/21 01:29 92 H 91 02/04/21 01:27 80 93 02/04/21 01:24 88 97 02/04/21 01:22 88 93 02/04/21 01:19 87 95 02/04/21 01:17 85 93 02/04/21 01:14 90 95 02/04/21 01:11 93 H 92 02/04/21 01:10 91 H 133/74 02/04/21 01:09 95 H 95 02/04/21 01:05 90 94 02/04/21 01:04 90 95 02/04/21 01:00 89 93 02/04/21 00:59 91 H 94 02/04/21 00:54 99 H 94 02/04/21 00:49 86 95 02/04/21 00:48 92 H 94 02/04/21 00:44 93 H 96 02/04/21 00:43 86 94 02/04/21 00:40 88 135/74 02/04/21 00:39 95 H 95 02/04/21 00:38 98 H 88 02/04/21 00:34 100 H 94 02/04/21 00:32 94 H 94 02/04/21 00:29 92 H 95 02/04/21 00:26 94 H 94 02/04/21 00:24 94 H 94 02/04/21 00:20 93 H 94 02/04/21 00:19 95 H 95 02/04/21 00:14 106 H 97 02/04/21 00:12 97 H 92 02/04/21 00:10 92 H 136/77 02/04/21 00:09 98 H 93 02/04/21 00:04 95 H 95 02/03/21 23:59 97 H 94 02/03/21 23:58 96 H 94 02/03/21 23:54 97 H 95 02/03/21 23:49 98 H 96 02/03/21 23:44 107 H 96 02/03/21 23:40 103 H 131/71 94 02/03/21 23:39 99 H 96 02/03/21 23:34 99 H 95 02/03/21 23:29 102 H 95 02/03/21 23:24 101 H 95 02/03/21 23:19 105 H 97 02/03/21 23:14 104 H 96 02/03/21 23:10 100 H 135/71 02/03/21 23:09 105 H 96 02/03/21 23:04 106 H 97 02/03/21 22:59 104 H 96 02/03/21 22:54 106 H 96 02/03/21 22:49 104 H 96 02/03/21 22:44 107 H 96 02/03/21 22:40 109 H 134/72 02/03/21 22:39 108 H 97 02/03/21 22:34 112 H 96 02/03/21 22:29 108 H 96 02/03/21 22:24 109 H 96 02/03/21 22:19 108 H 96 02/03/21 22:14 110 H 96 02/03/21 22:10 107 H 129/66 02/03/21 22:09 112 H 96 02/03/21 22:04 111 H 97 02/03/21 21:59 112 H 98 02/03/21 21:54 107 H 97 02/03/21 21:51 118 H 120/72 02/03/21 21:49 116 H 97 02/03/21 21:44 109 H 96 02/03/21 21:39 118 H 96 02/03/21 21:34 118 H 95 02/03/21 21:29 114 H 97 02/03/21 21:24 110 H 96 02/03/21 21:19 112 H 96 02/03/21 21:18 115 H 94 02/03/21 21:14 103 H 96 02/03/21 21:10 109 H 142/73 02/03/21 21:09 113 H 96 02/03/21 21:04 108 H 96 02/03/21 20:59 114 H 96 02/03/21 20:54 107 H 98 02/03/21 20:49 109 H 96 02/03/21 20:44 117 H 97 02/03/21 20:40 102 H 135/79 02/03/21 20:39 113 H 96 02/03/21 20:34 117 H 97 02/03/21 20:29 118 H 97 02/03/21 20:26 98.3 F 20 97 02/03/21 20:24 111 H 97 02/03/21 20:19 110 H 96 02/03/21 20:14 102 H 96 02/03/21 20:10 104 H 143/74 02/03/21 20:09 105 H 97 02/03/21 20:04 102 H 97 02/03/21 20:00 20 02/03/21 19:59 103 H 97 02/03/21 19:54 101 H 96 02/03/21 19:49 106 H 96 02/03/21 19:44 99 H 96 02/03/21 19:40 99 H 140/74 02/03/21 19:39 109 H 96 02/03/21 19:34 106 H 97 02/03/21 19:29 106 H 96 02/03/21 19:24 101 H 97 02/03/21 19:19 99 H 96 02/03/21 19:14 104 H 97 02/03/21 19:09 98 H 97 02/03/21 19:07 96 H 138/69 02/03/21 19:04 99 H 98 02/03/21 18:59 100 H 97 02/03/21 18:57 94 H 136/64 07/13/21 18:54 107 H 97 02/03/21 18:49 92 H 97 02/03/21 18:47 90 147/75 02/03/21 18:44 90 97 02/03/21 18:39 101 H 97 02/03/21 18:37 96 H 147/74 02/03/21 18:34 108 H 97 02/03/21 18:29 97 H 96 02/03/21 18:26 94 H 149/71 02/03/21 18:25 95 02/03/21 18:24 97 H 96 02/03/21 18:19 94 H 95 02/03/21 18:16 93 H 146/70 02/03/21 18:14 98 H 96 02/03/21 18:09 94 H 96 02/03/21 18:07 93 H 141/67 02/03/21 18:04 95 H 96 02/03/21 17:59 91 H 96 02/03/21 17:54 92 H 94 02/03/21 17:53 92 H 166/74 92 02/03/21 17:49 86 96 02/03/21 17:48 88 166/74 02/03/21 17:44 87 96 02/03/21 17:39 90 97 02/03/21 17:35 88 174/80 02/03/21 17:34 94 H 96 02/03/21 17:29 102 H 96 02/03/21 17:24 91 H 97 02/03/21 17:19 93 H 97 02/03/21 17:14 98 H 97 02/03/21 17:09 99 H 97 02/03/21 17:05 90 135/73 02/03/21 17:04 95 H 98 02/03/21 16:59 95 H 98 02/03/21 16:54 93 H 98 02/03/21 16:49 91 H 98 02/03/21 16:44 101 H 98 02/03/21 16:39 99 H 99 02/03/21 16:35 96 H 165/87 02/03/21 16:34 100 H 98 02/03/21 16:29 93 H 99 02/03/21 16:24 92 H 99 02/03/21 16:19 89 98 02/03/21 16:14 88 97 02/03/21 16:09 79 98 07 16:05 78 136/80 07 16:04 80 98 0721 15:59 78 97 21 15:54 83 97 02/03/21 15:49 81 98 21 15:44 77 98 02/03/21 15:39 75 97 02/03/21 15:35 71 147/86 07 15:34 82 97 02/03/21 15:29 71 97 02/03/21 15:24 77 99 0721 15:19 75 97 02/03/21 15:14 78 99 02/03/21 15:09 76 98 07 15:05 69 145/87 02/03/21 15:04 77 98 02/03/21 14:59 76 98 02/03/21 14:54 80 98 02/03/21 14:51 93 H 93 02/03/21 14:49 79 96 02/03/21 14:44 80 95 02/03/21 14:39 73 96 02/03/21 14:32 75 129/63 02/03/21 14:15 97.7 F 79 19 120/68 96 02/03/21 14:10 99 H 18 111/57 96 02/03/21 14:05 69 18 113/58 96 02/03/21 14:00 69 18 106/57 96 02/03/21 13:55 71 18 112/60 96 02/03/21 13:50 79 18 111/63 96 02/03/21 13:45 97.6 F 72 17 106/60 95 02/03/21 13:40 78 17 126/69 95 21 13:35 74 18 118/61 95 02/03/21 13:30 73 18 126/60 96 07/21 13:25 75 18 113/66 96 0721 13:20 76 17 121/71 96 21 13:15 72 18 110/64 96 21 13:11 97.7 F 69 18 111/65 96 21 11:31 100 H 97 0721 11:26 104 H 98 21 11:21 100 H 98 21 11:16 97 H 97 02/03/21 11:11 106 H 155/94 98 Intake and Output 02/03/21 02/04/21 02/04/21 22:59 06:59 14:59 Intake Total 240 Output Total 1450 1200 550 Balance -1450 -1200 -310 Intake: Oral 240 Output: Urine 1450 1200 550 Indwelling Catheter 1450 1200 550 Other: Total, Intake Amount 240 Total, Output Amount 100 150 400 - Exam Breasts: Present: deferred Cardiovascular: Present: Regular rate, Normal S1, Normal S2 Lungs: Present: Clear to auscultation, Normal air movement Abdomen: Present: normal appearance, soft Vulva: both: normal Uterus: Present: normal, firm Extremities: Present: normal Incision: Present: normal, dry, intact - Labs Labs: Abnormal lab results 02/03/21 02/04/21 02/04/21 Range/Units 16:09 00:14 04:12 Hgb 9.1 L (10.1-14.3) gm/dl Hct 28.0 L (30.3-42.9) % Magnesium 6.70 H 7.60 H (1.7-2.3) mg/dL 02/04/21 Range/Units 10:13 Hgb (10.1-14.3) gm/dl Hct (30.3-42.9) % Magnesium 7.50 H (1.7-2.3) mg/dL
[2021-02-04] MEDS: IBUPROFEN 800 MG TAB PO PRN (21:26)
[2021-02-05] MEDS: IBUPROFEN 800 MG TAB PO PRN ×2 (06:15→17:27)
--- NOTE | 2021-02-05 06:48 | Progress Note ---
Assessment and Plan Postop day 2 status post primary for arrest of descent doing well. Patient the blood pressures have been in normal range. We will continue to monitor before deciding on starting medication. Continue routine care. Encourage ambulation. Subjective - Subjective Date of service: 02/05/21 Interval history: Postop day 2 status post primary low transverse section for arrest of descent. Patient is doing well. She denies headaches or blurry vision. Her pain is well controlled. She denies nausea or vomiting and is tolerating a regular diet. Pt is now off magnesium. Pt bp is in high normal range. Patient reports: appetite normal, voiding normally, pain well controlled, ambulating normally : doing well Objective - Vital Signs Latest vital signs: Vital Signs Temp Pulse Resp BP BP Pulse Ox 02/05/21 06:15 18 02/05/21 04:59 98.6 F 78 20 135/68 97 02/05/21 01:04 97.8 F 86 24 143/75 96 02/04/21 22:26 18 02/04/21 21:26 18 02/04/21 20:51 98.2 F 95 H 28 H 159/75 98 02/04/21 17:00 98.4 F 102 H 18 121/76 97 02/04/21 15:56 105 H 134/78 02/04/21 15:47 90 02/04/21 15:19 114 H 95 02/04/21 15:14 109 H 94 02/04/21 15:09 117 H 95 02/04/21 15:07 107 H 94 02/04/21 15:04 112 H 95 02/04/21 15:00 106 H 94 02/04/21 14:59 112 H 95 02/04/21 14:54 107 H 95 02/04/21 14:51 113 H 94 02/04/21 14:49 113 H 95 02/04/21 14:44 105 H 97 02/04/21 14:42 102 H 143/79 02/04/21 14:39 103 H 94 02/04/21 14:38 103 H 94 02/04/21 14:34 107 H 95 02/04/21 14:30 101 H 94 02/04/21 14:29 100 H 95 02/04/21 14:24 106 H 95 02/04/21 14:19 110 H 94 02/04/21 14:14 116 H 94 02/04/21 14:09 113 H 96 07 14:04 99 H 95 07 14:00 105 H 94 07 13:59 114 H 95 07 13:54 104 H 95 02/04/21 13:49 107 H 95 07 13:44 106 H 94 02/04/21 13:42 104 H 133/73 94 02/04/21 13:39 108 H 95 02/04/21 13:34 105 H 95 02/04/21 13:32 98.1 F 16 02/04/21 13:29 104 H 95 02/04/21 13:24 109 H 96 02/04/21 13:19 109 H 97 02/04/21 13:15 112 H 94 02/04/21 13:14 107 H 96 02/04/21 13:09 110 H 96 02/04/21 13:04 110 H 97 02/04/21 13:01 109 H 94 02/04/21 12:59 111 H 95 02/04/21 12:54 107 H 96 02/04/21 12:49 109 H 96 02/04/21 12:44 115 H 97 02/04/21 12:39 108 H 96 02/04/21 12:34 111 H 96 02/04/21 12:29 108 H 97 02/04/21 12:24 107 H 96 02/04/21 12:19 110 H 96 02/04/21 12:14 115 H 97 02/04/21 12:12 111 H 94 02/04/21 12:09 111 H 96 02/04/21 12:04 104 H 96 02/04/21 12:00 115 H 94 02/04/21 11:59 105 H 96 02/04/21 11:55 109 H 94 02/04/21 11:54 105 H 97 02/04/21 11:49 101 H 96 02/04/21 11:44 100 H 96 07 11:42 97 H 140/71 02/04/21 11:39 104 H 96 02/04/21 11:34 105 H 96 02/04/21 11:29 103 H 95 02/04/21 11:24 102 H 95 02/04/21 11:19 101 H 96 07/14/21 11:18 107 H 94 07/14/21 11:14 103 H 94 07/14/21 11:12 103 H 94 07/14/21 11:09 104 H 94 07/14/21 11:04 109 H 94 07/14/21 10:59 102 H 94 07/14/21 10:58 107 H 94 07/14/21 10:54 102 H 95 07/14/21 10:52 104 H 94 07/14/21 10:49 100 H 94 /14/21 10:47 103 H 94 07/14/21 10:44 101 H 95 /14/21 10:42 100 H 136/84 94 07/14/21 10:39 100 H 96 /14/21 10:35 100 H 94 14/ 10:34 97 H 95 // 10:29 103 H 95 14/21 10:27 99 H 94 /14/ 10:24 102 H 96 /14/ 10:21 105 H 94 02/04/21 10:19 104 H 94 14/ 10:15 99 H 94 /14/21 10:14 103 H 94 07/14/21 10:10 107 H 93 /14/ 10:09 102 H 95 02/04/ 10:04 104 H 96 02/04/ 10:02 103 H 94 02/04/21 09:59 100 H 95 14/21 09:57 105 H 94 14/21 09:54 104 H 94 14 09:49 100 H 94 21 09:44 102 H 95 14/21 09:43 97 H 94 /14/21 09:40 100 H 134/69 // 09:39 107 H 95 07/14/21 09:38 109 H 94 /14/21 09:34 94 H 95 14/21 09:32 91 H 91 14/21 09:29 89 95 07/14/21 09:26 96 H 92 /14/21 09:24 89 94 07/14/21 09:21 89 94 07/14/21 09:19 89 95 07/14/21 09:16 91 H 90 14/21 09:14 95 H 88 07 09:11 97 H 93 02/04/21 09:10 90 142/83 02/04/21 09:09 89 96 02/04/21 09:05 85 93 02/04/21 09:04 92 H 93 02/04/21 09:00 91 H 94 02/04/21 08:59 97 H 97 02/04/21 08:54 86 95 02/04/21 08:49 92 H 94 02/04/21 08:44 94 H 95 02/04/21 08:40 96 H 158/86 02/04/21 08:39 103 H 93 02/04/21 08:38 96 H 94 02/04/21 08:34 98 H 96 02/04/21 08:33 109 H 94 02/04/21 08:29 105 H 95 02/04/21 08:24 99 H 95 02/04/21 08:19 97 H 96 02/04/21 08:18 103 H 94 02/04/21 08:14 106 H 97 02/04/21 08:10 96 H 147/93 02/04/21 08:09 98 H 95 02/04/21 08:08 105 H 93 02/04/21 08:04 107 H 93 02/04/21 08:01 109 H 94 02/04/21 07:59 105 H 94 02/04/21 07:55 108 H 93 02/04/21 07:54 101 H 95 02/04/21 07:52 98.1 F 16 02/04/21 07:50 104 H 94 02/04/21 07:49 103 H 95 02/04/21 07:44 107 H 94 02/04/21 07:42 101 H 94 02/04/21 07:40 100 H 168/84 02/04/21 07:39 102 H 93 02/04/21 07:34 104 H 93 02/04/21 07:33 100 H 94 02/04/21 07:29 100 H 95 02/04/21 07:25 103 H 94 02/04/21 07:24 103 H 94 02/04/21 07:19 95 H 94 02/04/21 07:14 91 H 96 02/04/21 07:10 86 137/71 02/04/21 07:09 94 H 96 02/04/21 07:07 90 94 02/04/21 07:04 94 H 96 02/04/21 06:59 97 H 94 02/04/21 06:54 99 H 95 02/04/21 06:53 99 H 94 02/04/21 06:49 99 H 95 02/04/21 06:47 98.1 F Intake and Output 02/04/21 02/04/21 02/05/21 14:59 22:59 06:59 Intake Total 240 600 Output Total 868 929 1495 Balance -310 500 -1200 Intake: Oral 240 240 Intake, Free Water 360 Output: Urine 534 298 0755 Indwelling Catheter 155 967 3831 Other: Total, Intake Amount 240 240 Total, Output Amount 070 957 3025 - Exam Cardiovascular: Present: Regular rate, Normal S1, Normal S2 Lungs: Present: Clear to auscultation, Normal air movement Abdomen: Present: normal appearance, soft, normal bowel sounds Uterus: Present: normal, firm, fundal height below umbilicus Extremities: Present: normal Incision: Present: normal, dry, intact, dressed - Labs Labs: Abnormal lab results 02/04/21 Range/Units 10:13 Magnesium 7.50 H (1.7-2.3) mg/dL
[2021-02-05] MEDS: PRENATAL VIT27-FE FUMARATE-FOLIC ACID VIT TAB PO SCH ×2 (16:36→17:27)
[2021-02-06] MEDS: IBUPROFEN 800 MG TAB PO PRN ×2 (05:16→17:22)
--- NOTE | 2021-02-06 09:04 | Progress Note ---
Assessment and Plan POD 2 s/p ltcs. Doing weel. Blood pressure still mildly elevated. Plan for discharge on tomorrow. Subjective - Subjective Date of service: 02/06/21 Interval history: Postop day 2 status post primary low transverse section for arrest of d escent. Patient is doing well. She denies headaches or blurry vision. Her pain is well controlled. She denies nausea or vomiting and is tolerating a regular diet. Pt is now off magnesium. Pt bp is in high range. Will begin antihypertensive. Patient reports: appetite normal, voiding normally, pain well controlled, ambulating normally : doing well Objective - Vital Signs Latest vital signs: Vital Signs Temp Pulse Resp BP Pulse Ox 02/06/21 07:55 98.7 F 75 16 147/72 97 02/06/21 05:16 99.3 F 75 20 147/73 97 02/06/21 01:08 98.2 F 81 24 145/69 96 02/05/21 20:40 98.2 F 87 20 162/81 97 02/05/21 17:27 20 02/05/21 16:13 98.8 F 78 24 158/71 98 02/05/21 11:55 98.8 F 75 22 152/74 97 Intake and Output 02/05/21 02/06/21 02/06/21 22:59 06:59 14:59 Intake Total 360 Balance 360 Intake: Oral 360 Other: Total, Intake Amount 360 # Voids Void 1 - Exam Lungs: Present: Clear to auscultation, Normal air movement Abdomen: Present: normal appearance, soft, normal bowel sounds Uterus: Present: normal, firm Incision: Present: normal, dry, intact
[2021-02-06] MEDS: NIFEdipine XL 60 MG TAB PO SCH (09:35)
[2021-02-06] MEDS: PRENATAL VIT27-FE FUMARATE-FOLIC ACID VIT TAB PO SCH (09:40)
[2021-02-07] MEDS: IBUPROFEN 800 MG TAB PO PRN (05:31)
[2021-02-07] MEDS: PRENATAL VIT27-FE FUMARATE-FOLIC ACID VIT TAB PO SCH (09:18)
[2021-02-07] MEDS: NIFEdipine XL 60 MG TAB PO SCH (09:18)
--- NOTE | 2021-02-07 11:36 | Progress Note ---
Assessment and Plan - Patient Problems (1) delivery delivered Current Visit: Yes Status: Acute Plan to address problem: Routine postoperative care Discharge home Subjective - Subjective Date of service: 02/07/21 Interval history: The patient is currently in the NICU visiting her . No complaints were notated by the nursing staff. Patient reports: appetite normal, voiding normally, pain well controlled [place]: in NICU Objective - Vital Signs Latest vital signs: Vital Signs Temp Pulse Resp BP BP Pulse Ox 02/07/21 09:33 98.1 F 106 H 20 140/95 96 02/07/21 05:31 20 02/07/21 03:58 98.2 F 107 H 18 130/79 98 02/07/21 00:56 98.3 F 127 H 20 138/79 97 02/06/21 22:19 98.0 F 100 H 20 130/73 99 02/06/21 16:01 98.2 F 112 H 24 150/88 98 02/06/21 14:10 97 H 24 153/84 98 02/06/21 11:42 97.7 F 79 20 152/84 100 Intake and Output 02/06/21 02/07/21 02/07/21 22:59 06:59 14:59 Intake Total 150 240 Balance 150 240 Intake: Oral 150 Intake, Free Water 240 Other: Total, Intake Amount 150 # Voids Void 1 2
--- NOTE | 2021-02-07 11:38 | Discharge Summary ---
Providers - Providers Date of Admission: 02/01/21 22:56 Date of discharge: 02/07/21 Attending physician: MARIA ALEJANDRA DUVAL Primary care physician: MARIA ALEJANDRA DUVAL Hospitalization Reason for admission: other (Elevated blood pressure) Delivery: Procedure: section, primary low transverse Discharge diagnosis: other (Preeclampsia) Hospital course: The patient was admitted with elevated blood pressures. Intrapartum course is complicated by arrest of descent for which the patient underwent a primary delivery. The patient received magnesium therapy postoperatively. The remainder of her postoperative course was uneventful. Condition at discharge: Good Disposition: DC-01 TO HOME OR SELFCARE - Discharge Diagnoses (1) delivery delivered Status: Acute Plan - Discharge Medications Prescriptions: Docusate Sodium [Colace] 100 mg PO BID #60 capsule Ferrous Sulfate [Feosol 325 MG tab] 325 mg PO BID #60 tablet Ibuprofen [Motrin] 800 mg PO Q8HR PRN #40 tablet PRN Reason: Pain, Mild (1-3) oxyCODONE /ACETAMINOPHEN [Percocet 5/325] 2 tab PO Q6HR PRN #40 tablet PRN Reason: Pain NIFEdipine XL [Procardia Xl] 60 mg PO QDAY #30 tablet - Provider Discharge Summary Activity: no sex for 6 weeks, no heavy lifting 4 weeks, no strenuous exercise Diet: routine Instructions: routine Additional instructions: [] Smoking cessation referral if applicable(refer to patient education folder for contact #) [] Refer to [facility] Booklet Call your doctor immediately for: * Fever > 100.5 * Heavy vaginal bleeding ( >1 pad per hour) * Severe persistent headache * Shortness of breath * Reddened, hot, painful area to leg or breast * Drainage or odor from incision. * Keep incision clean and dry at all times and follow doctor's instructions regarding bathing/showering Follow-up [address] Duval - Follow up plan Follow up: MARIA ALEJANDRA DUVAL MD [Primary Care Provider] - 7 Days
[2021-02-07 12:51] VITALS: BP 144/87
== END 2021-02-07 14:00 | disposition home or self-care (01) | DRG 766 ==
LOC: TRG 19:32 → LD 19:47 → UNDOADMIN 19:47 → APU 19:55 → LD 21:37 → TRG 22:56 → OB 02-04 17:22
PROVIDERS: ADMIT Obstetrics & Gynecology; ATTEND Obstetrics & Gynecology
PROC: 10D00Z1 Extraction of Products of Conception, Low, Open Approach (ICD-10-PCS; principal; 2021-02-03)
DX: O32.4XX0 Maternal care for high head at term, not applicable or unspecified (principal); O14.14 Severe pre-eclampsia complicating childbirth; Z3A.38 38 weeks gestation of pregnancy; Z37.0 Single live birth; O99.824 Streptococcus B carrier state complicating childbirth; O99.214 Obesity complicating childbirth; O61.8 Other failed induction of labor; Z20.822 Contact with and (suspected) exposure to COVID-19
CPT/HCPCS: 36415; 76815; 81001; 82565; 83615; 83735; 84450; 84460; 84550; 85014; 85018; 85027; 86592; 86850; 86900; 86901; 87086; 99211; G0378; G0463; J0290; J0360; J1100; J1885; J2370; J2405; J2590; J2765; J3010; J3475; J3490; J7030; J7120; U0003